=== PATIENT | female | born 1950 | race Caucasian/White ===

== ENCOUNTER 2016-08-21 12:50 | Day surgery (SDC) | payer MEDICARE ==
[~2016-08-21] VITALS: Ht 167.6 cm; Wt 74.8 kg
[~2016-08-21 12:50] MED LIST: Sodium Chloride LOK Flush 10 mL Syringe IV PRN; fentaNYL-PF 50 mCg/mL 2 mL Inj IVPUSH PRN
[2016-08-21 13:23] VITALS: BP 145/64; PULSE 72; RESP 19; O2SAT 97
[2016-08-21] MEDS ORDERED: PARO30TA75 PO (13:30)
[2016-08-21] MEDS ORDERED: LOSA50TA37 PO (13:30)
[2016-08-21] MEDS ORDERED: MULT1CAP33 PO (13:30)
[2016-08-21] MEDS ORDERED: HYG25 PO (13:30)
[2016-08-21] MEDS ORDERED: LEVO112T4 PO (13:30)
[2016-08-21] MEDS: 0.9% Sodium Chloride 1,000 ML IV SCH ×2 (14:46→15:20)
[2016-08-21 15:28] VITALS: BP 121/61; PULSE 59; O2SAT 100
[2016-08-21 15:37] VITALS: BP 114/58; PULSE 48; O2SAT 98
--- NOTE | 2016-08-21 15:42 | ENDO ---
[address] [address] ENDOSCOPY PROCEDURE PATIENT: BRENDA ELY : 1950 MR#: [id number] ADMIT: 08/21/2016 JOB ID: [id number] DATE: 08/21/2016 PRIMARY PROVIDER: CORINNE Tilley PROCEDURE: Colonoscopy with cold forceps polypectomy. INDICATIONS: A 66-year-old female who reports for colon cancer screening. EQUIPMENT: PCF H 180 AL. SEDATION: 1. 6 mg Versed. 2. 125 mcg fentanyl. COMPLICATIONS: None identified. BOWEL PREPARATION: Suboptimal in many locations requiring copious amounts of irrigation and suction. In spite of all of our efforts, there were some areas that could not be fully cleansed and small polyps could have been overlooked. PROCEDURAL INFORMATION: After the risks and benefits were explained, written and verbal informed consent was obtained. The patient was brought into the endoscopy suite, placed into the left lateral decubitus position. Sedation was achieved as above. A digital rectal examination was accomplished. Moderate internal and external nonbleeding, nonthrombosed hemorrhoids were noted. The scope was introduced into the rectum and advanced under direct visualization to the level of the cecum, as identified by the appendiceal orifice and ileocecal valve. The scope was slowly withdrawn to carefully examine the mucosa for any defects or lesions. Multiple direct views were made through the dentate line for exclusion of pathology. The colon was decompressed. The scope removed from the patient who tolerated the procedure well. FINDINGS: Prep conditions as above. Very challenging navigation, twisty bowel, redundant colon. There were a couple of very diminutive polyps that were removed by way of cold forceps in the cecum. Within the limitations of bowel prep, no other significant pathology was appreciated throughout. ENDOSCOPIC DIAGNOSES: Diminutive colon polyps. RECOMMENDATIONS: 1. Await histopathology. 2. If these polyps are hyperplastic, based on the prep conditions, I would again recommend a repeat in five years with an extra prep day. If the polyps are adenomatous, then repeat colonoscopy in three years.
[2016-08-21 15:44] VITALS: BP 116/65; PULSE 76; O2SAT 100
--- NOTE | 2016-08-23 11:41 | PATH ---
SURGICAL PATHOLOGY Attending Physician:Chico Pelayo CASE STATUS: Signed Out PATIENT NAME: BRENDA ELY PID: [id number] : 1950 DATE COLLECTED:08/21/2016 00:00 SPECIMEN: Colon, Biopsy CLINICAL HISTORY: A: CECAL POLYPS FINAL DIAGNOSIS: 1.CECAL POLYP: TUBULAR ADENOMA. ICD10 CODE D12.0 GROSS DESCRIPTION: The specimen is received in one formalin filled container labeled with the patient's name, sublabeled "cecal polyps" and consists of a 0.4 x 0.3 x 0.2 CM portion of tissue which is entirely submitted in one cassette. 08/22/2016 DAC MICRO DESCRIPTION: See diagnosis. ICD-9 CODES: CPT CODES: 1: 30128 Electronically Signed Out Constantion Echevarria MD [facility] [address] [facility], [place] [address] Technical component performed at [facility], [address] [place] [address] Ave[address], [place], [address]
== END 2016-08-21 23:59 | disposition home or self-care (01) ==
LOC: END 12:50
PROVIDERS: ATTEND Internal Medicine Gastroenterology
DX: Z12.11 Encounter for screening for malignant neoplasm of colon (principal); Z86.010 Personal history of colon polyps; D12.0 Benign neoplasm of cecum; Z85.850 Personal history of malignant neoplasm of thyroid
CPT/HCPCS: 45380; 99153; G0500; J2250; J7030